=== PATIENT | female | born 1995 | race African-American/Black ===

== ENCOUNTER 2018-10-30 09:49 | Emergency (ER) | payer MEDICARE ==
[~2018-10-30] VITALS: Ht 154.9 cm; Wt 84.0 kg
[2018-10-30 12:48] LABS: CLARITY URINE CLEAR (CLEAR); COLOR URINE YELLOW (YELLOW); KETONES URINE NEGATIVE (NEGATIVE); LEUKOCYTE ESTERASE URINE NEGATIVE (NEGATIVE); NITRITE URINE NEGATIVE (NEGATIVE); OCCULT BLOOD URINE NEGATIVE (NEGATIVE); PH URINE 5.5 (4.5-8.0); PROTEIN URINE NEGATIVE (NEGATIVE); SPECIFIC GRAVITY URINE 1.014 (1.005-1.030); UROBILINOGEN URINE 0.2 E.U./dL (0.2-1.0)
[2018-10-30 13:17] LABS: BASOPHILS % 1.4 % (0.0-2.0); EOSINOPHILS % 2.8 % (0.0-5.0); HEMATOCRIT. 38.2 % (36.0-48.0); HEMOGLOBIN. 12.9 g/dL (12.0-16.0); LYMPHOCYTES % 40.5 % (20.0-50.0); MEAN CORPUSCULAR VOLUME 91.5 fL (81.0-99.0); MONOCYTES % 8.5 % (2.0-8.0); NEUTROPHILS % 46.8 % (40.0-76.0); PLATELET 343 x1000/uL (130-400); RED BLOOD CELL COUNT 4.17 mill/uL (4.2-5.4); RED CELL DISTRIBUTION WIDTH 13.5 % (11.6-14.6)
[2018-10-30 13:27] LABS: INR 1.1
[2018-10-30 13:38] LABS: HCG SCREEN NEGATIVE
[2018-10-30 14:08] LABS: CHLORIDE 109 mEq/L (98-107)
[2018-10-30 15:00] VITALS: BP 144/96
== END 2018-10-30 16:15 | disposition home or self-care (01) ==
LOC: ER 09:49
DX: R10.2 Pelvic and perineal pain (principal); F17.210 Nicotine dependence, cigarettes, uncomplicated; Z71.6 Tobacco abuse counseling
CPT/HCPCS: 36415; 76830; 76856; 80053; 81003; 81025; 83690; 84703; 85025; 85610; 87086; 99284; 99406; Z7610